=== PATIENT | female | born 1970 | race Caucasian/White ===

== ENCOUNTER 2021-02-15 18:45 | Emergency (ER) | payer OTHER, SELFPAY ==
[2021-02-15 18:55] VITALS: BP 125/83; PULSE 78; RESP 14; TEMP 36.6; O2SAT 97
--- NOTE | 2021-02-15 19:09 | W.ED.GENAD ---
Discharge Plan Disposition Patient Disposition: HOME Condition: Stable Discharge Details Clinical Impression: Sore throat Primary Care Provider: Unknown,Unknown ED Provider: Crystal Trevizo Home Meds and New Rx's Prescriptions: No Action No Known Home Meds RF: 0 Discharge Instructions Instructions: Pharyngitis (ED) Additional Instructions: Your rapid strep test today is negative. Your throat swab has been sent for a culture which will take several days to result. You will be notified if it is positive for another form of strep throat. You were also swabbed for Covid today. You will be notified of the result when it is available in the coming days. Drink plenty of fluids and get plenty of rest. Alternate tylenol and motrin as needed and directed for pain. Follow-up with your primary care doctor in 1 week. Return to the emergency department with any worsening or new concerning symptoms. Stand Alone Forms: PENDING COVID-19 TESTING Discharge Data Discharge Physician: Crystal Trevizo Medical Decision Making 50-year-old female recently traveling from [place] to [place] presents with sore throat since yesterday with concern for possible strep throat versus covid. She appears comfortable and nontoxic. Her vitals are within normal limits. Her posterior oropharynx is erythematous with a possible L upper tonsil stone but no evidence of exudates or abscess. There is no drooling, trismus, or submandibular swelling. Lungs clear bilaterally. Rapid strep test negative. Discussed with patient that symptoms may be consistent with viral pharyngitis, allergies, dehydration, or less likely another form of bacterial pharyngitis or Covid. A send out Covid swab obtained. Throat culture sent. Patient declined any antibiotic prescription and would rather wait on the throat culture result. She is returning to [place] soon. Advised to increase fluids, alternate Tylenol and Motrin. Discussed that as her pain is not solely in the left side of her posterior oropharynx, do not suspect that the possible tonsil stone is the sole cause of her pain. She is advised that she can gargle with warm water with capful of hydrogen peroxide as needed. Advised to follow-up with her PCP for reevaluation. Usual and customary return precautions given prior to discharge. Medical Records Medical records reviewed: Yes I reviewed the patient's medical records. HPI General Mode of arrival: ambulatory. Date/Time Provider Initiated Documentation: 02/15/21 18:49. Limitations to Documentation: no limitations. Information obtained by: patient. HPI Narrative: Patient is a 50-year-old female who presents with sore throat since yesterday. Patient states she is from [facility] and traveled to [place] recently for her father's and to clean out his apartment in [place]. She states she is fully vaccinated for Covid and denies any known exposure to recent illness, strep throat or coronavirus. She states she did have a yard sale for her father's belongings recently but states she was social distancing and mask wearing and denies any known exposure to sick contacts. She states her recent temperature was 99.7 but states her temperature usually runs low. She denies any ear pain, headache, neck pain, coughing, shortness of breath or abdominal pain. She states she is mainly concerned about possible strep throat or Covid. She states she took Tylenol this morning with some relief. Related Data Home Medications Medication Instructions Recorded Confirmed Unknown [No Known Home Meds] 02/15/21 02/15/21 Allergies Allergy/AdvReac Type Severity Reaction Status Date / Time No Known Allergies Allergy Unverified 02/15/21 19:00 General Stated Complaint: Sorethroat LORENA: 3 Review of Systems All systems reviewed & are unremarkable except as noted in HPI and below Constitutional Constitutional: Reports as per HPI, Denies chills and Denies fever(s) Eyes Eyes: Denies blurry vision ENT Ears, Nose, Mouth, and Throat: Denies dizziness, Reports sore throat and Denies throat swelling Cardiovascular Cardiovascular: Denies chest pain and Denies dyspnea Respiratory Respiratory: Denies cough and Denies dyspnea Gastrointestinal Gastrointestinal: Denies abdominal pain, Denies diarrhea and Denies vomiting Genitourinary Genitourinary: Denies hematuria and Denies dysuria Musculoskeletal Musculoskeletal: Denies back pain and Denies numbness Integumentary/Breasts Skin/Breast: Denies lesions and Denies rash Neurologic Neurologic: Denies dizziness, Denies localized weakness and Denies numbness Allergic/Immunologic Allergic/Immunologic: Denies throat swelling [facility] Medical History (Updated 02/15/21 @ 19:58 by Crystal Trevizo DO) No significant past medical history Surgical History (Updated 02/15/21 @ 19:56 by Crystal Trevizo DO) No significant past surgical history Social History Smoking/Tobacco Use Status: Never Smoking risk assessment performed?: Yes Alcohol Intake: current Alcohol Intake frequency: a few times a month Substance use type: does not use Do you feel safe at home: Yes Do you feel safe in your relationship?: Yes Exam Const General: cooperative, healthy appearing and no acute distress HENMT Head: normal to inspection Ears: hearing grossly normal bilaterally, external ears normal and TM's normal bilaterally Face and sinus: normal facial exam Mouth: oral mucosae normal, no drooling and no trismus Throat: uvula midline, no peritonsillar masses and posterior oropharynx abnormal (possible small L upper tonsil stone) erythema; no edema and no exudates Eyes General: appearance normal, both eyes and all related structures EOM: EOM intact bilaterally Neck Neck: normal visual inspection, no meningeal signs, trachea midline, supple, no anterior neck swelling and No submandibular swelling Lymphatic: no lymphadenopathy noted Chest Chest: normal inspection of the chest and no tenderness Resp Effort & Inspection: normal respiratory effort and able to speak in complete sentences Auscultation: clear to auscultation bilaterally Cardio Rate: regular rate Rhythm: regular rhythm Skin General skin exam: no rashes or lesions noted Neuro General: patient alert, patient awake, patient oriented x3, no meningeal signs and no focal motor deficits Cognition: normal cognition Speech: speech normal Motor: muscle tone normal throughout Sensory Exam: no sensory deficits noted Extrem General: normal to inspection, full ROM, capillary refill normal, no calf tenderness bilaterally and no edema Psych Appearance: grossly normal Mental Status: mental status grossly normal Speech and Movement: speech and movement normal Affect: normal affect Course Vital Signs Vital signs: Vital Signs Temperature 97.9 F 02/15/21 18:55 Pulse 78 02/15/21 18:55 Respiratory Rate 14 02/15/21 18:55 Blood Pressure 125/83 02/15/21 18:55 Pulse Oximetry 97 02/15/21 18:55 Temperature 97.9 F 02/15/21 18:55 Temperature Source Skin 02/15/21 18:55 Pulse 78 02/15/21 18:55 Respiratory Rate 14 02/15/21 18:55 Respiratory Effort 02/15/21 19:03 Blood Pressure 125/83 02/15/21 18:55 Blood Pressure Position Sitting 02/15/21 18:55 Pulse Oximetry 97 02/15/21 18:55 Oxygen Delivery Method Room Air 02/15/21 18:55 Oxygen Flow Rate 0 02/15/21 18:55 Pain Level 2 02/15/21 18:55
[2021-02-17 13:23] LABS: COVID-19 RT-PCR UVMMC Result Negative (Negative)
--- NOTE | 2021-02-17 16:57 | NUR.NOTE ---
Nursing Note: Negative COVID result given over the phone after identity confirmed.
== END 2021-02-15 20:05 | disposition home or self-care (01) ==
PROVIDERS: Emergency Provider Physician Assistant
DX: J02.9 Acute pharyngitis, unspecified (principal); Z20.822 Contact with and (suspected) exposure to COVID-19
CPT/HCPCS: 87880; 99282; U0003; 87081